=== PATIENT | female | born 1995 | race Caucasian/White ===

== ENCOUNTER 2016-05-11 15:12 | Emergency (ER) | payer MEDICAID ==
[~2016-05-11] VITALS: Ht 160 cm; Wt 50.3 kg
[2016-05-11 15:53] VITALS: BP 121/70
== END 2016-05-11 16:24 | disposition home or self-care (01) ==
LOC: ER 15:15
DX: S46.911A Strain of unspecified muscle, fascia and tendon at shoulder and upper arm level, right arm, initial encounter (principal); V49.3XXA Car occupant (driver) (passenger) injured in unspecified nontraffic accident, initial encounter; Y93.89 Activity, other specified; Y99.8 Other external cause status; Y92.89 Other specified places as the place of occurrence of the external cause

== ENCOUNTER 2016-05-16 23:27 | Emergency (ER) | payer MEDICAID ==
[~2016-05-16] VITALS: Ht 160 cm; Wt 48.6 kg
[2016-05-17] MEDS ORDERED: SODIUM CHLORIDE 0.9% 1,000 ML IV ONE (02:47)
[2016-05-17] MEDS ORDERED: MORPHINE SULFATE 4 MG/ML SYRG IV ONE (03:00)
[2016-05-17] MEDS ORDERED: ONDANSETRON HCL 4 MG/2 ML VIAL IV ONE (03:00)
[2016-05-17 04:09] VITALS: BP 106/63
[2016-05-17 04:16] LABS: Basophils # (auto) 0 uL; Basophils % (auto) 0.2 % (0.0-2.0); Eosinophils # (auto) 0 uL; Eosinophils % (auto) 0.2 % (0.0-7.0); Hemoglobin 13.7 g/dL (12.2-16.2); Lymphocytes % (auto) 17.8 % (10.0-50.0); Mean Corpuscular Hemoglobin 30.5 pg (28.0-32.0); Mean Corpuscular Hgb Conc. 33.4 g/dL (32.0-36.0); Mean Corpuscular Volume 91.4 fL (80.0-100.0); Mean Platelet Volume 8.2 fL (7.4-10.4); Monocytes # (auto) 0.9 uL; Neutrophils # (auto) 8.2 uL; Neutrophils % (auto) 73.8 % (37.0-80.0); Platelet Count (auto) 305 10^3/uL (140-450); Red Cell Distribution Width 12.3 % (11.6-16.0); White Blood Cell 11.1 10^3/uL (4.4-10.8)
[2016-05-17 04:37] LABS: Albumin 4.1 g/dL (3.4-5.0); BUN/Creatinine Ratio 25.4; Bilirubin, Total 0.4 mg/dL (0.2-1.0); Calcium 9.1 mg/dL (8.5-10.1); Potassium 3.6 mmol/L (3.5-5.1); Total Protein 7.7 g/dL (6.4-8.2)
[2016-05-17] MEDS ORDERED: cefTRIAXone 1GM/50ML D5W 50 ML IV ONE (06:00)
== END 2016-05-17 05:52 | disposition home or self-care (01) ==
LOC: ER 23:33
DX: K52.9 Noninfective gastroenteritis and colitis, unspecified (principal)
CPT/HCPCS: 36415; 74176; 80053; 82150; 83690; 84702; 85025; 85049; 96361; 96365; 96375; 99285; J0696; J2270; J2405; J7030